=== PATIENT | female | born 2000 | race Two or more races ===

== ENCOUNTER 2024-08-12 11:14 | Emergency (ER) | payer SELFPAY ==
--- OUTSIDE RECORDS SUMMARY | 2024-08-12 14:28 | XMS_ITS | Encounter Summary ---
Author Organization [employer] Address [address] [place] [address] Care Team Providers Care Special Education Classroom Aide Name Role Phone Boni Jimenez MD Primary Care Provider Reason for Visit * Reason Comments Vaginitis/Bacterial Vaginosis Foul odor Encounter Details Date Type Department Care Team (Latest Contact Info) Description 07/18/2024 10:00 AM EST Office Visit [facility] [address] [place] [address] Abby Hernandez, ADITYA [address] [place] [address] Vaginal odor (Primary Dx); Screen for STD (sexually transmitted disease) Social History Tobacco Use Types Packs/Day Years Used Date Smoking Tobacco: Never Smokeless Tobacco: Never Tobacco Cessation:Counseling Given: Not Answered Alcohol Use Standard Drinks/Week Comments Yes 0 (1 standard drink = 0.6 oz pur e alcohol) Sex and Gender Information Value Date Recorded Sex Assigned at Not on file Gender Identity Female 01/31/2022 2:40 PM EDT Sexual Orientation Straight 01/31/2022 2: 40 PM EDT Job Start Date Occupation Industry Not on file Not on file Not on file documented as of this encounter Last Filed Vital Signs Vital Sign Reading Time Taken Comments Blood Pressure 113/66 07/18/2024 10:37 AM EST Pulse 65 07/18/2024 10:37 AM EST Temperature - - Respiratory Rate 18 07/18/2024 10:37 AM EST Oxygen Saturation - - Inhaled Oxygen Concentration - - Weight 59.7 kg (131 lb 9.6 oz) 07/18/2024 10:37 AM EST Height 167.6 cm (5' 6 ) 07/18/2024 10:37 AM EST Body Mass Index 21.24 07/18/2024 10:37 AM EST documented in this encounter Progress Notes * Abby Hernandez, ADITYA - 07/18/2024 10:00 AM EST 07/18/2024 No chief complaint on file. Subjective: Kelly Garza is a 24 y.o. No obstetric history on file. who presents for evaluation of foul vaginal odor x 2 weeks. Not currently SA but would like STD screening. Denies itching, irritation or increased D/C. Was treated for a recent UTI and would like to make sure it has cleared up. Review of Systems: As in HPI. Review of Systems - General ROS: negative Gastrointestinal ROS: no abdominal pain, change in bowel habits, or black or bloody stools Genito-Urinary ROS: no dysuria, trouble voiding, or hematuria There is no problem list on file for this patient. Past Medical History: Diagnosis Date Asthma with exacerbation 04/17 DX:Asthma with exacerbation; COMMENT: prednisone burst, seen at [place] [facility] 12/19 Asthma, mild intermittent, well-controlled DX:Asthma, mild intermittent, well-controlled; COMMENT: pulmicort 180 mcg 3 puffs po q hs, and singulair Asthma, moderate persistent 12/16/2010 DX:Asthma, moderate persistent; COMMENT: Followed by Dr. Collins 09/20: seen by Dr. Collins, sx controlled with advair 100 BID, singular 5 mg. Spirometry mild flow limitation. Stopped the singulair/ f/u 1year 06/23: advair daily, no asthma sx Eczema DX:Eczema Family history of high cholesterol 07/16/2015 DX:Family history of high cholesterol; COMMENT: 07/25 her cholesterol is 138 Historical Medical DX DX:Food allergy; COMMENT: walnuts, hazelnuts, kiwi, green apple Menarche 12/20/12 DX:Menarche Seasonal allergies DX:Seasonal allergies; COMMENT: Loratadine, Flonase Past Surgical History: Procedure Laterality Date APPENDECTOMY 08/05/06 PROCEDURE: HISTORICAL APPENDECTOMY Family History Problem Relation Name Age of Onset Allergies Mother Breast cancer Mother 43.00 MGM, BRCA positive, getting double mast and reconstruction Ovarian cancer Mother Eczema Father Hypertension Father Hyperlipidemia Father Breast cancer Maternal Grandmother 35.00 recently had chemo, double mast, now cancer free Asthma Mother's side everyone Uterine cancer Neg Hx Social History Socioeconomic History Marital status: Single Spouse name: Not on file Number of children: Not on file Years of education: Not on file Highest education level: Not on file Occupational History Not on file Tobacco Use Smoking status: Never Smokeless tobacco: Never Substance and Sexual Activity Alcohol use: Yes Drug use: No Sexual activity: Not on file Other Topics Concern Not on file Social History Narrative Lives mom ,dad 1 sister Rebecca Pets: 3 dogs, and 1 cat No second hand smoke 12th grade at [employer] met her credits at high school doing college courses while still in high school ([employer]) As of 07/15/182021: lives with parents and sister, sam clark, wedding is 03/31, with BF of 6 years. Infrequent exercise OB History No obstetric history on file. Prior to Admission medications Not on File Not on File Objective: There were no vitals filed for this visit. Gen: Well-appearing on today's exam NEUROLOGIC: speech fluent, grossly intact PSYCH: Mood and affect appropriate. Alert and oriented x 3. ABDOMEN: Soft, non-tender. No masses palpable, no organomegaly. LYMPH: No inguinal lymphadenopathy. PELVIC: External Genitalia: Exam chaperoned by phlebotomist medical lab assistant. Declined. Normal architecture, without lesions Urethral meatus: normal Vagina: normal appearance. Mucosa is pink, normal rugae. Light creamy discharge. No lesions. Cervix: Normal appearance, without discharge or lesions. Perianal area: No lesions. Assessment/Plan: 24 y.o.No obstetric history on file. with: Encounter Diagnoses Name Primary? Vaginal odor Yes Screen for STD (sexually transmitted disease) Reviewed with the patient that the exam shows normal discharge. Will send cultures. Genital hygiene reviewed including wiping front to back, no soap in vagina, avoid scented or perfumed femine hygiene products, avoid tight or non-moisture wicking clothing. Samples obtained for STD screening as requested by patient. Labs ordered for the lab to screen for HIV, Hep C, syphilus. Reviewed with patient a lifestyle that reduces her risks of STD exposure including monogomous relationships, condoms, and yearly screening Avoid intercourse until treatment is complete. Call or RTO if symptoms do not improve or recur. Patient also advised her next annual exam is due Abby Hernandez CNM documented in this encounter Plan of Treatment Upcoming Encounters Date Type Department Care Team (Late st Contact Info) Description 11/05/2024 8:45 AM EDT Office Visit Obst[facility]s [facility] [address] [place] [address] Karen Bocanegra CNM [address] [place] [address] Scheduled Orders Name Type Priority Associated Diagnoses Orde r Schedule Treponema pallidum antibody Lab Routine Screen for STD (sexually transmitted disease) 1 Occurrences starting 07/18/2024 until 07/18/2025 documented as of this encounter Procedures Procedure Name Priority Date/Time Associated Diagnosis Comments TRICHOMONAS VAGINALIS ANTIGEN Routine 07/18/2024 11:56 AM EST Screen for STD (sexually transmitted disease) CHLAMYDIA TRACHOMATIS AND NEISSERIA GONORRHOEAE PCR Routine 07/18/2024 11:56 AM EST Screen for STD (sexually transmitted disease) WET PREP, GENITAL Routine 07/18/2024 11: 56 AM EST Screen for STD (sexually transmitted disease) POC URINE AUTO W/O MICRO Routine 07/18/2024 10:49 AM EST Vaginal odor documented in this encounter Results * Trichomonas vaginalis antigen (07/18/2024 11:56 AM EST) Trichomonas vaginalis Negative Negative 07/18/2024 6:31 PM EST [facility] Swab Vaginal structure / Unknown Non-blood Collection / Unknown 07/18/2024 11:56 AM EST 07/18/2024 11:56 AM EST Abby Hernandez CNM LAB MICROBIOLOG Y - GENERAL ORDERABLES [facility] [address] [place] [address], [place] [phone] * (ABNORMAL) Wet prep, genital (07/18/2024 11:56 AM EST) Clue Cells, Wet Prep Positive(A) Negative 07/18/2024 6:31 PM EST [facility] Yeast, Wet Prep Negative Negative 07/18/2024 6:31 PM EST [facility] Trichomonas, Wet Prep Indeterminate Negative 07/18/2024 6:31 PM EST [facility] Comment:Refer to Trichomonas antigen. Swab Vaginal structure / Unknown Non-blood Collection / Unknown 07/18/2024 11:56 AM EST 07/18/2024 11:56 AM EST Abby Hernandez CNM LAB MICROBIOLOG Y - GENERAL ORDERABLES Performing Organization Address City/[facility]/ZIP Co de Phone Number [facility] [address] [place] [address], [place] [phone] * Chlamydia trachomatis and Neisseria gonorrhoeae molecular study (07/18/2024 11:56 AM EST) Neisseria gonorrhoeae PCR Negative Negative LAB MOLECULAR DIAGNOSTICS METHOD 07/19/2024 9:43 AM EST [facility] Chlamydia trachomatis PCR Negative Negative LAB MOLECULAR DIAGNOSTICS METHOD 07/19/2024 9:43 AM EST [facility] Swab Endocervical structure / Unknown Non-blood Collection / Unknown 07/18/2024 11:56 AM EST 07/18/2024 11:56 AM EST Abby Hernandez CNM LAB MICROBIOLOG Y - GENERAL ORDERABLES Performing Organization Address City/[facility]/ZIP Co de Phone Number [facility] [address] [place] [address], [place] [phone] * Hepatitis C antibody (07/18/2024 11:23 AM EST) Hepatitis C Antibody Negative Negative LAB CHEMISTRY METHOD 07/18/2024 3:23 PM EST [facility] Blood Venous blood specimen / Unknown Venipuncture / Unknown 07/18/2024 11:23 AM EST 07/18/2024 11:23 AM EST Abby Hernandez [facility] BLOOD ORDER GETACHEW [facility] [address] [place] [address], * HIV 1,2 antibody, p24 antigen with reflex to differentiation (07/18/2024 11:23 AM EST) HIV Combo AB/AG Negative Negative LAB CHEMISTRY METHOD 07/18/2024 3:23 PM EST [facility] Blood Venous blood specimen / Unknown Venipuncture / Unknown 07/18/2024 11:23 AM EST 07/18/2024 11:23 AM EST Narrative [facility] - 07/18/2024 3:23 PM EST This assay is a 4th generation assay allowing for earlier detection of HIV infection by detecting the presence of the HIV-1 p24 antigen as well as the traditional antibodies to HIV type 1 (including group O) and type 2. ??Use of a 4th generation assay is the current CDC recommendation for HIV screening. Abby MIMS LAB BLOOD ORDER GETACHEW Performing Organization Address [facility]/ZIP Co de Phone Number [facility] [address] [place] [address], * POC Urine Auto W/O Micro (07/18/2024 10:49 AM EST) Color UA POC Light Yellow Appearance UA POC Clear Glucose UA POC Negative Negative, Trace mg/dL Bilirubin UA POC Negative Negative, Small Ketones UA POC Negative Negative, Trace Specific [place] UA POC 1.010 Blood UA POC Negative Negative, Large PH UA POC 7.5 Protein UA POC Negative Negative, >=300 mg/dL Urobilinogen UA POC 2.0 mg/dL Nitrite UA POC Negative Negative Leukocytes UA POC Negative Negative Urine Urine specimen obtained by clean catch procedure / Unknown 07/18/2024 10:49 AM EST Abby Hernandez [facility] POINT OF CARE T EST ENTER/EDIT ORDERABLES documented in this encounter Visit Diagnoses Diagnosis Vaginal odor- Primary Unspecified symptom associated with female genital organs Screen for STD (sexually transmitted disease) Screening examination for venereal disease documented in this encounter Historical Medications * This list may reflect changes made after this encounter. Medication Sig Dispensed Refills Start Date End Date hydrocortisone 2.5 % cream Apply 1 Application topically if needed. For eczema 07/15/2018 Arnuity Ellipta 200 mcg/actuation blister with device inhaler Inhale 1 puff by mouth 1 (one) time each day. 05/14/2024 flunisolide (NASALIDE) 25 mcg (0.025 %) spray,non-aerosol Administer 1 spray into affected nostril(s) every 12 (twelve) hours. 03/30/2017 EPINEPHrine (EpiPen 2-[place]) 0.3 mg/0.3 mL injection Inject 0.3 mL (0.3 mg total) into the thigh if needed. 07/15/2018 albuterol HFA (PROAIR HFA ; PROVENTIL HFA ; VENTOLIN HFA) 90 mcg/actuation inhaler Inhale 2 puffs by mouth every 4 (four) hours if needed. 07/15/2018 added in this encounter Care Teams Special Education Classroom Aide Relationship Specialty Start Date End Date Boni Jimenez MD [address] [place] [id number] PCP - General Internal Medicine 09/21/20 documented as of this encounter
--- OUTSIDE RECORDS SUMMARY | 2024-08-12 14:28 | XMS_ITS | Clinical Summary ---
Author Organization Patient Business Ser [facility] [place] Address [address] [place] [address] Care Team Providers Care Lightning Rod Erector Name Role Phone Boni Jimenez MD Primary Care Provider Allergies Active Allergy Reactions Criticality Noted Date Comments Kiwi (Actinidia Chinensis) 0 Pectin 07/21/2024 Pollen Extracts 11/29/2009 Seasonal allergies Tree Nuts 05/09/2010 Medications Medication Sig Dispensed Refills Start Date End Date Status albuterol HFA (PROAIR HFA ; PROVENTIL HFA ; VENTOLIN HFA) 90 mcg/actuation inhaler Inhale 2 puffs by mouth every 4 (four) hours if needed. 07/15/2018 Active EPINEPHrine (EpiPen 2-[place]) 0.3 mg/0.3 mL injection Inject 0.3 mL (0.3 mg total) into the thigh if needed. 07/15/2018 Active flunisolide (NASALIDE) 25 mcg (0.025 %) spray,non-aerosol Administer 1 spray into affected nostril(s) every 12 (twelve) hours. 03/30/2017 Active Arnuity Ellipta 200 mcg/actuation blister with device inhaler Inhale 1 puff by mouth 1 (one) time each day. 05/14/2024 Active hydrocortisone 2.5 % cream Apply 1 Application topically if needed. For eczema 07/15/2018 Active fluticasone propionate (FLOVENT DISKUS) 50 mcg/actuation diskus inhaler Inhale into the lungs. Active albuterol HFA (PROVENTIL HFA;VENTOLIN HFA) 108 (90 Base) MCG/ACT inhaler See Instructions, 0, 0, 01/28/07 18:54:53, 2puffs every 4 hours PRN wheeze, Print BESSY Number, Constant Indicator 08/05/2006 Active UNABLE TO FIND 1 Container by Does not apply route daily. 07/11/2010 Active metroNIDAZOLE (METROGEL) 0.75 % (37.5mg/5 gram) vaginal gelIndications:BV (bacterial vaginosis) Insert 1 Applicatorful into the vagina 1 (one) time each day for 5 days. 70 g 07/18/2024 07/23/2024 Active Problems Problem Noted Date Diagnosed Date Acute cystitis with hematuria 01/29/2024 Overview (07/21/2024): Last Assessment & Plan: Treated with Bactrim Fibroadenoma of breast 03/15/2021 Overview (07/21/2024): 03/2021- Right breast Biopsy, usual hyperplasia Benign findings, BiRads- 2 Asthma, mild persistent 07/15/2018 Overview (07/21/2024): 04/14/19: seen by Dr. Collins. ACT . Spirometry, mild flow obstruction. Restarted on controller flovent 250-500/day. F/u 1 year Recent unintentional weight loss over several mo nths 07/15/2018 Eczema 03/18/2009 Overview (07/21/2024): Last Assessment & Plan: Use a bland perfume free soap such as Dove or Aveno. Use a daily moisturizer such as Eucerin or Aveno. Use perfume free laundry detergent such as Dreft. Seasonal allergies 03/18/2009 Overview (07/21/2024): Claritin Encounters Date Type Department Care Team Description 07/18/2024 10:00 AM EST Office Visit [facility] [address] [place] [address] Abby Hernandez, ADITYA Vaginal odor (Primary Dx); Screen for STD (sexually transmitted disease) from Last 3 Months Immunizations Name Administration Dates Next Due DTaP (Infanrix) 6wks to less than 7yo ,12/05/2001,2000,09/27,2000 THbB-AMI-HAH (Pentacel) 2mo to less than 5yo 09/09/2001,2000,2000,07/30 H1N1 Inj Preservative Free 10/14/2009,05/19/2009 HPV, Quadrivalent 01/30/2014,01/29/2013,12/29/19 12 Hepatitis B Pediatric (Enger ix B; Recombivax HB) to less than 20 yo 02/21/2001,2000,2000 Hib (HbOC) 09/09/2001, 1,2000,07/30 IPV Inactivated polio (Ipol) 6wks and older 06/07/2005,05/28/2001,2000,07/30 Influenza trivalent, 0.5mL, preservative free (Fluarix; FluLaval; Fluzone) ages 6mo and older (Afluria) 3 years and older 03/30/2017,06/29/2016,07/16/2015,04/21 Influenza trivalent, with pr eservative (Fluzone; Afluria) 6mo and older 04/23/2012,03/24/2010,03/31/2009,04/23,04/15/2007,06/24/2006,05/18/2006 MMR, measles mumps and rubel la Live (Priorix; M-M-R II) 12mo and older 06/07/2005,05/28/2001 Meningococcal MCV4P 07/18/2016,01/29/2013 Pneumococcal Conjugate Vacci ne, 7 Valent 02/05/2003,2000,2000,07/30 Tdap Tetanus diptheria acell ular pertussis (Boostrix; Adacel) 7yo and older 12/29/2011 Varicella live (Varivax) 12m o and older 05/19/2009,05/28/2001 Surgical History Surgery Date Site/Laterality Comments APPENDECTOMY 08/05/06 PROCEDURE: HISTORICAL APPENDECTOMY Medical History Medical History Date Comments Asthma, mild intermittent, well-controlled DX:Asthma, mild intermittent , well-controlled; COMMENT: pulmicort 180 mcg 3 puffs po q hs, and singulair Eczema DX:Eczema Seasonal allergies DX:Seasonal a llergies; COMMENT: Loratadine, Flonase Historical Medical DX DX:Food al lergy; COMMENT: walnuts, hazelnuts, kiwi, green apple Asthma with exacerbation 04/17 DX:Asth ma with exacerbation; COMMENT: prednisone burst, seen at [facility] 12/19 Menarche 12/20/12 DX:Menarche Asthma, moderate persistent 12/16/2010 DX:A sthma, moderate persistent; COMMENT: Followed by Dr. Collins 09/20: seen by Dr. Collins, sx controlled with advair 100 BID, singular 5 mg. Spirometry mild flow limitation. Stopped the singulair/ f/u 1 year 06/23: advair daily, no asthma sx Family history of high cholesterol 07/16/2015 DX:Family history of high cholesterol; COMMENT: 07/25 her cholesterol is 138 Family History Medical History Relation Name Comments Eczema Father Hyperlipidemia Father Hypertension Father Breast cancer Maternal Grandmother recent ly had chemo, double mast, now cancer free Allergies Mother Breast cancer Mother MGM, BRCA posi tive, getting double mast and reconstruction Ovarian cancer Mother Asthma Mother's side everyone Uterine cancer Neg Hx Relation Name Status Comments Father Alive Maternal Grandfather Alive Maternal Grandmother Alive Mother Alive Mother's side Paternal Grandfather Alive Paternal Grandmother Alive Sister Alive Social History Tobacco Use Types Packs/Day Years [...] file Not on file Not on file Obstetrics History Last Filed Vital Signs Vital Sign Reading [...] Mass Index 21.24 07/18/2024 10:37 AM EST Plan of Treatment Upcoming Encounters Date Type Department Care Team (Late st Contact Info) Description 11/05/2024 8:45 AM EDT [facility] [address] [place] [address] Krissy Bocanegrandra, ADITYA [address] [place] [address] Health Maintenance Due Date Last Done Comments Pneumococcal Vaccine: Pediatrics (0 to 5 Years) and At-Risk Patients (6 to 64 Years) (1 of 2 - PPSV23 or PCV20) 04/02/2003 02/05/2003, 2000, 2000, Additional history exists COVID-19 Vaccine (#1) 2005 DTaP,Tdap,and Td Vaccines (7 - Td or Tdap) 12/28/2021 12/29/2011, 06/07/2005, 12/05/2001, Additional history exists Depression Screening 01/27/2022 Social Influencers of Health Screening 01/27/2022 Influenza Vaccine (#1) 2024 7, 06/29/2016, 07/16/2015, Additional history exists Cervical Cancer Screening: Pap Smear 04/17/2025 04/17/2022, 04/17/2022, 04/17/2022 Gonorrhea/Chlamydia Screening 07/18/2025 07/18/2024, 04/17/2022 Hepatitis B Vaccines Completed 02/21/2001, 2000, 2000 HIB Vaccines Completed 09/09/2001, 10/2001, 2000, Additional history exists IPV Vaccines Completed 06/07/2005, 10/2001, 05/28/2001, Additional history exists MMR Vaccines Completed 06/07/2005, 05/28/2001 Varicella Vaccines Completed 05/19/2009, 05/28/2001 HPV Vaccines Completed 01/30/2014, 01/07, 12/29/2011 Meningococcal ACWY Vaccine Completed 07/18/2016, HIV Screening Completed 07/18/2024 Hepatitis C Screening Completed 07/18/2024 Hepatitis A Vaccines Aged Out No long er eligible based on patient's age to complete this topic RSV Immunization Patients Under 20 months Aged Out No longer eligible based on patient's age to complete this topic Procedures Procedure Name Priority Date/Time Associated Diagnosis Comments TRICHOMONAS VAGINALIS ANTIGEN Routine 07/18/2024 11:56 AM EST Screen for STD (sexually transmitted disease) WET PREP, GENITAL Routine 07/18/2024 11: 56 AM EST Screen for STD (sexually transmitted disease) CHLAMYDIA TRACHOMATIS AND NEISSERIA GONORRHOEAE PCR Routine 07/18/2024 11:56 AM EST Screen for STD (sexually transmitted disease) HEPATITIS C ANTIBODY Routine 07/18/2024 11:23 AM EST Screen for STD (sexually transmitted disease) HIV 1, 2 ANTIBODY, P24 ANTIGEN WITH REFLEX TO DIFFERENTIATION Routine 07/18/2024 11:23 AM EST Screen for STD (sexually transmitted disease) TREPONEMA PALLIDUM ANTIBODY WITH REFLEX TO RPR AND PARTICLE AGGLUTINATION Routine 07/18/2024 11:23 AM EST Screening examination for venereal disease POC URINE AUTO W/O MICRO Routine 07/18/2024 10:49 AM EST Vaginal odor PAP SMEAR Routine 04/17/2022 from Last 3 Months or Most Recently Relevant to Health Maintenance Results * Trichomonas vaginalis antigen (07/18/2024 11:56 AM EST) Trichomonas vaginalis Negative Negative 07/18/2024 6:31 PM EST [facility] Swab Vaginal structure / Unknown Non-blood Collection / Unknown 07/18/2024 11:56 AM EST 07/18/2024 11:56 AM EST Abby Hernandez CNM LAB MICROBIOLOG Y - GENERAL ORDERABLES [facility] [address] [place] [address], * Chlamydia trachomatis and Neisseria gonorrhoeae molecular [...] [facility] [address] [place] [address], [place] [phone] * (ABNORMAL) Wet prep, genital (07/18/2024 11:56 AM EST) Clue Cells, Wet Prep Positive(A) Negative 07/18/2024 6:31 PM EST [facility] Yeast, Wet Prep Negative Negative 07/18/2024 6:31 PM [facility] Trichomonas, Wet Prep Indeterminate Negative 07/18/2024 6:31 PM EST [facility] Comment:Refer to Trichomonas antigen. Swab Vaginal structure / Unknown Non-blood Collection / Unknown 07/18/2024 11:56 AM EST 07/18/2024 11:56 AM EST Abby Hernandez CNM LAB MICROBIOLOG Y - GENERAL ORDERABLES Performing Organization Address City/[facility]/ZIP Co de Phone Number [facility] [address] [place] [address], * Hepatitis C antibody (07/18/2024 11:23 AM EST) Hepatitis C Antibody Negative Negative LAB CHEMISTRY METHOD 07/18/2024 3:23 PM EST [facility] Blood Venous blood specimen / Unknown Venipuncture / Unknown 07/18/2024 11:23 AM EST 07/18/2024 11:23 AM EST Abby Hernandez [facility] BLOOD ORDER GETACHEW Performing Organization Address [facility]/[employer]UST Co de Phone Number [facility] [address] [place] [address], [place] [phone] * HIV 1,2 antibody, p24 antigen with reflex to differentiation (07/18/2024 11:23 AM EST) Pathologist [facility] HIV Combo AB/AG Negative Negative LAB CHEMISTRY [...] LAB BLOOD ORDER GETACHEW Performing Organization Address [facility]/[employer]UST Co de Phone Number [facility] [address] [place] [address], [place] [phone] * Treponema pallidum antibody with reflex to RPR and particle agglutination (07/18/2024 11:23 AM EST) T. Pallidum Antibodies Negative Negative LAB CHEMISTRY METHOD 07/18/2024 2:54 PM EST [facility] Blood Venous blood specimen / Unknown Venipuncture / Unknown 07/18/2024 11:23 AM EST 07/18/2024 11:23 AM EST Abby Hernandez CNM LAB BLOOD ORDER GETACHEW [facility] [address] [place] [address], * POC Urine Auto W/O Micro (07/18/2024 10:49 AM EST) Color UA POC Light Yellow Appearance UA POC Clear Glucose UA POC Negative Negative, Trace mg/dL Bilirubin UA POC Negative Negative, Small Ketones UA POC Negative Negative, Trace Specific [place] UA POC 1.010 Blood UA POC Negative Negative, Large PH UA POC 7.5 Protein UA POC Negative Negative, >=300 mg/dL Urobilinogen UA POC 2.0 mg/dL Nitrite UA POC Negative Negative Leukocytes UA POC Negative Negative Urine Urine specimen obtained by clean catch procedure / Unknown 07/18/2024 10:49 AM EST Abby Hernandez CNM POINT OF CARE T EST ENTER/EDIT ORDERABLES * Pap smear (04/17/2022) 04/17/2022 Narrative HISTORICAL TESTING LAB RESULTING AGENCY - 04/24/2022 7:46 AM EDT [id number] THINPREP PAP, IMAGED: NEGATIVE FOR SQUAMOUS INTRAEPITHELIAL LESION AND MALIGNANCY . ANUPAMA VIRGEN(ASCP) (CASE ELECTRONICALLY SIGNED 04 22 2022) ADEQUACY: SATISFACTORY ENDOCERVICAL/TRANSFORMATION ZONE COMPONENT PRESENT. SOURCE: THINPREP PAP HPV IF ASCUS, CERVICAL, IMAGED CLINICAL INFORMATION: HPV IF DIAGNOSIS OF ASCUS. HORMONES, LMP 03/25/22, [Z01.419] Briana Victor CNM LAB CYTOLOGY ORDERAB LES HISTORICAL TESTING LAB RESULTING AGENCY from Last 3 Months or Most Recently Relevant to Health Maintenance Care Teams Lightning Rod Erector Relationship Specialty Start Date End Date Boni Jimenez MD [address] [place] [address] PCP - General Internal Medicine 09/21/20
== END 2024-08-12 15:37 | disposition left against medical advice (07) ==
PROVIDERS: Emergency Provider Emergency Medicine
DX: R06.03 Acute respiratory distress (principal)